=== PATIENT | female | born 1945 | race Caucasian/White ===

== ENCOUNTER 2016-09-30 08:48 | Outpatient (CLI) | payer MEDICARE, BC, MEDICAID ==
[2016-08-24 13:58] VITALS: O2SAT 96
== END 2016-09-30 08:49 | disposition home or self-care (01) | DRG 561 ==
LOC: CONVCARE 08:48
PROVIDERS: ATTEND Orthopaedic Surgery
DX: Z47.1 Aftercare following joint replacement surgery (principal); Z96.642 Presence of left artificial hip joint
CPT/HCPCS: 73502

== ENCOUNTER 2017-08-19 13:00 | Emergency (ER) | payer MEDICARE, BC, MEDICAID ==
[2017-08-19 13:18] VITALS: TEMP 98.7
[2017-08-19] MEDS ORDERED: LIDOCAINE HCL 2% (VISCOUS) 20 ML SOL MT ONE (13:20)
[2017-08-19] MEDS ORDERED: ALUMINUM/MAGNESIUM 30 ML SUS PO ONE (13:20)
[2017-08-19] MEDS ORDERED: LIDOCAINE HCL 2% (VISCOUS) 20 ML SOL ONE (13:44)
[2017-08-19] MEDS ORDERED: ALUMINUM/MAGNESIUM 30 ML SUS ONE (13:44)
[2017-08-19] MEDS ORDERED: SODIUM CHLORIDE 0.9% FLUSH 10 ML SOL IV PRN (13:53)
[2017-08-19 13:55] VITALS: BP 129/51; PULSE 61; RESP 20; O2SAT 99
== END 2017-08-19 14:35 | disposition home or self-care (01) | DRG 313 ==
LOC: ED 13:00
DX: R07.89 Other chest pain (principal)
CPT/HCPCS: 84484; 85378; 93005; 99283; 99284

== ENCOUNTER 2017-08-26 17:26 | Emergency (ER) | payer MEDICARE, BC, MEDICAID ==
[2017-08-26 17:54] VITALS: TEMP 98
[2017-08-26] MEDS ORDERED: ALUMINUM/MAGNESIUM 30 ML SUS PO ONE (18:18)
[2017-08-26] MEDS ORDERED: LIDOCAINE HCL 2% (VISCOUS) 20 ML SOL MT ONE (18:18)
[2017-08-26] MEDS ORDERED: ALUMINUM/MAGNESIUM 30 ML SUS ONE (18:20)
[2017-08-26] MEDS ORDERED: LIDOCAINE HCL 2% (VISCOUS) 20 ML SOL ONE (18:21)
[2017-08-26 18:47] LABS: GLOM FILT RATE 61 mL/min (>60); POTASSIUM 4.2 mMol/L (3.5-5.1); SODIUM 136 mMol/L (136-145)
[2017-08-26 19:31] VITALS: BP 128/61; PULSE 56; RESP 22; O2SAT 98
== END 2017-08-26 19:20 | disposition home or self-care (01) | DRG 392 ==
LOC: ED 17:26
DX: K21.9 Gastro-esophageal reflux disease without esophagitis (principal); I10 Essential (primary) hypertension; R07.89 Other chest pain
CPT/HCPCS: 71020; 80048; 83735; 84484; 93005; 99283

== ENCOUNTER 2018-02-22 18:40 | Emergency (ER) | payer MEDICARE, BC ==
[2018-02-22 19:26] VITALS: RESP 20; TEMP 97.7; O2SAT 96
[2018-02-22 21:31] LABS: BASOPHILS % (AUTO) 2 % (0-3); EOSINOPHILS % (AUTO) 2 % (0-9); HEMATOCRIT 43 % (35-47); HEMOGLOBIN 15.2 gm/dl (12.0-15.5); LYMPHOCYTES % (AUTO) 38.6 % (10-50); MEAN CORPUSCULAR HEMOGLOBIN 31.3 pg (27.0-32.0); MEAN CORPUSCULAR HGB CONC 35.3 gm/dl (32.0-36.0); MEAN CORPUSCULAR VOLUME 89 fL (81-99); NEUTROPHILS % (AUTO) 50.7 % (37-80)
[2018-02-22 21:45] LABS: BLOOD UREA NITROGEN 13 mg/dl (7-18); CALCIUM 9.1 mg/dl (8.5-10.1); CARBON DIOXIDE 29.6 mEq/L (21-32); CHLORIDE 105 mMol/L (98-107); CREATININE 0.94 mg/dl (0.60-1.00); GLOM FILT RATE 59 mL/min (>60); GLUCOSE 102 mg/dl (74-106); POTASSIUM 3.9 mMol/L (3.5-5.1); SODIUM 141 mMol/L (136-145); TROP I < 0.017 ng/ml (0.000-0.056)
[2018-02-22 22:17] VITALS: PULSE 54
[2018-02-22 22:31] VITALS: BP 147/74
== END 2018-02-22 22:25 | disposition home or self-care (01) | DRG 305 ==
LOC: ED 18:40
DX: I10 Essential (primary) hypertension (principal); R00.1 Bradycardia, unspecified; R51 Headache
CPT/HCPCS: 36415; 80048; 83735; 84484; 85025; 93005; 99283

== ENCOUNTER 2019-05-14 16:58 | Emergency (ER) | payer MEDICAID, OTHER ==
[2019-05-14 17:16] VITALS: RESP 18; TEMP 97
[2019-05-14 17:21] VITALS: O2SAT 98
[2019-05-14 18:02] VITALS: PULSE 62
[2019-05-14 18:03] VITALS: BP 140/64
== END 2019-05-14 17:54 | disposition home or self-care (01) | DRG 392 ==
LOC: ED 16:58
DX: R10.12 Left upper quadrant pain (principal); K57.32 Diverticulitis of large intestine without perforation or abscess without bleeding; Z79.4 Long term (current) use of insulin
CPT/HCPCS: 99282

== ENCOUNTER 2019-05-15 09:52 | Emergency (ER) | payer OTHER ==
[2019-05-15 10:05] VITALS: TEMP 97.6
[2019-05-15] MEDS ORDERED: ONDANSETRON HCL 4 MG/2 ML SOL IV ONE (10:27)
[2019-05-15] MEDS ORDERED: SODIUM CHLORIDE 0.9% 1000ML 1,000 ML IV ONE (10:27)
[2019-05-15] MEDS ORDERED: ONDANSETRON HCL 4 MG/2 ML SOL ONE (10:30)
[2019-05-15 10:52] LABS: BASOPHILS % (AUTO) 1 % (0-3); EOSINOPHILS % (AUTO) 1 % (0-9); HEMATOCRIT 48 % (35-47); HEMOGLOBIN 15.7 gm/dl (12.0-15.5); LYMPHOCYTES % (AUTO) 28.5 % (10-50); MEAN CORPUSCULAR HEMOGLOBIN 30.8 pg (27.0-32.0); MEAN CORPUSCULAR HGB CONC 32.5 gm/dl (32.0-36.0); MEAN CORPUSCULAR VOLUME 95 fL (81-99); MONOCYTES % (AUTO) 7.5 % (0-12); NEUTROPHILS % (AUTO) 61.6 % (37-80)
[2019-05-15 10:56] LABS: ALBUMIN 3.8 gm/dl (3.4-5.0); ALKALINE PHOSPHATASE 86 IU/L (46-116); ALT 23 IU/L (14-63); AST 15 IU/L (15-37); BILIRUBIN,TOTAL 0.5 mg/dl (0.2-1.0); BLOOD UREA NITROGEN 8 mg/dl (7-18); CALCIUM 8.9 mg/dl (8.5-10.1); CARBON DIOXIDE 29.7 mEq/L (21-32); CHLORIDE 101 mMol/L (98-107); CREATININE 0.94 mg/dl (0.60-1.00); GLUCOSE 111 mg/dl (74-106); TOTAL PROTEIN 7.2 gm/dl (6.4-8.2)
[2019-05-15 10:59] LABS: APPEARANCE,URINE Clear; BILIRUBIN,URINE NEGATIVE (NEGATIVE); COLOR,URINE Yellow; GLUCOSE, URINE (UA) NEGATIVE (NEGATIVE); KETONES,URINE NEGATIVE (NEGATIVE); LEUKOCYTE ESTERASE ,URINE NEGATIVE (NEGATIVE); NITRATE,URINE NEGATIVE (NEGATIVE); OCCULT BLOOD,URINE TRACE INTACT (NEG-TRACE); PH,URINE 6.5; UROBILINOGEN,URINE 0.2 (0.2-1.0 EU)
[2019-05-15 11:09] LABS: CRP INFLAMMATORY < 0.05 mg/dl (0.00-0.33)
[2019-05-15 11:09] LABS: BACTERIA NEGATIVE (< 1+); CRYSTALS NEGATIVE (0-3 AVE/HPF); EPITHELIAL CELLS 0-2 RENAL (SQUAMOUS); RBC,URINE NEG (0-3AV/HPF); WBC,URINE NEG (0-5AV/HPF)
[2019-05-15 11:18] VITALS: BP 120/60; PULSE 60; RESP 16; O2SAT 98
[2019-05-15 11:56] LABS: SEDIMENTATION RATE 0 mm/hr (0-20)
== END 2019-05-15 12:30 | disposition home or self-care (01) | DRG 392 ==
LOC: ED 09:52
DX: R10.32 Left lower quadrant pain (principal)
CPT/HCPCS: 74177; 80053; 81001; 85025; 85651; 86140; 96365; 96366; 96374; 99283; 99284; J2405; Q9967